=== PATIENT | female | born 1980 | race Caucasian/White ===

== ENCOUNTER 2017-12-22 19:39 | Emergency (ER) | payer SELFPAY ==
[~2017-12-22 19:39] MED LIST: ALPR-429 PO; ATEN-65 PO; CLO10 MT; HYDR-4225 PO; IBUP800T37 PO; MELO-205 PO; METH-543 PO; NAPR500T31 PO; SERT-1 PO
[2017-12-22 19:44] VITALS: BP 146/102
--- NOTE | 2017-12-22 19:45 | ER Report ---
History and Physical Time Seen By MD: 19:41 HPI/ROS CHIEF COMPLAINT: sinus infection HISTORY OF PRESENT ILLNESS: This is a 37 year old female. She has severe pain in the left side of her nose and into the left cheek. Congestion and post-nasal drainage. 3 days of symptoms. Has history of really bad sinus infections. Has been using decongestants and nasal spray. She has used Flonase nasal spray in the past for spring allergic symptoms that are mild. She is having cough, but nonproductive. No chest pain. Chronic constipation, no diarrhea. Allergies: Coded Allergies: No Known Drug Allergies (Unverified , 12/22/17) Home Meds Active Scripts Amoxicillin (AMOXICILLIN) 500 Mg Capsule, 1 CAP PO Q8H, #21 CAPSULE 0 Refills Prov:ROSEMARY PONCE MD 12/22/17 Reported Medications Ibuprofen (IBUPROFEN) 800 Mg Tablet, 1 TAB PO Q8H, TAB 04/15/17 Discontinued Scripts Hydroxyzine Hcl (HYDROXYZINE HCL) 25 Mg Tablet, 25 MG PO Q6H for Anxiety, #30 TAB 0 Refills Prov:QAMAR MOULTON MD 04/15/17 Sertraline Hcl (ZOLOFT) 50 Mg Tablet, 1 TAB PO QDAY, #30 TAB 0 Refills Take 0.5 tab daily x 7 days. Then take 1 tab daily. Prov:ZAIRE PETERSON DNP, INSURANCE INSTRUCTOR-BC 11/09/16 Reviewed Nurses Notes: Yes Smoking Status: Current: Every Day Smoker Constitutional Vital Sign - Last 24 Hours 12/22/17 19:44 Temp 99.1 Pulse 87 Resp 16 B/P (MAP) 146/102 Pulse Ox 99 Physical Exam General Appearance: The patient is alert, has no immediate need for airway protection and no current signs of toxicity. Eyes: Pupils equal and round no injection. ENT: Normal oral mucosa. Moist mucous membranes. Thin post nasal drainage. Posterior oropharynx with a couple of small ulcers and erythema. Nasal mucosa red, erythematous and has a small ulcer on mucosa of the side of the left nasal passage. Red and bulging left TM, right TM with effusion only. Neck: Neck is supple and non tender. Has left periauricular lymphadenopathy. Respiratory: Chest is non tender, lungs are clear to auscultation. Cardiac: regular rate and rhythm Gastrointestinal: Abdomen is soft and non tender, no masses, bowel sounds normal. Musculoskeletal: Extremities have full range of motion. Non tender. Skin: No rashes or lesions. DIFFERENTIAL DIAGNOSIS: After history and physical exam differential diagnosis was considered for what appears to be a viral sinusitis and an acute otitis media on the left Medical Decision Making ED Course/Re-evaluation ED Course Amoxicillin for the otitis media, continue nasal saline, Sudafed, Tylenol and ibuprofen. Follow-up if no improvement in the next 2 weeks. Decision to Disposition Date: December 22, 2017 Decision to Disposition Time: 20:08 Depart Departure Latest Vital Signs Vital Signs Date Time Temp Pulse Resp B/P (MAP) Pulse Ox O2 Delivery O2 Flow Rate FiO2 12/22/17 19:44 99.1 87 16 146/102 99 Impression: Primary Impression: Otitis media Additional Impression: Sinus infection Condition: Improved Disposition: HOME OR SELF-CARE Referrals: TORI RITTER APRN INSURANCE INSTRUCTOR-C (PCP) New Scripts Amoxicillin (AMOXICILLIN) 500 Mg Capsule 1 CAP PO Q8H, #21 CAPSULE 0 Refills Prov: ROSEMARY PONCE MD 12/22/17 Patient Instructions: Otitis Media (ED), Sinusitis (ED) Additional Instructions: Keep using your sinus nasal spray and decongestants. We are prescribing the antibiotic Amoxicillin 500mg three times a day for 7 days for the ear infection. The sinus infection appears to be likely viral in origin. With your history of spring seasonal allergies, you could also restart your Flonase as well. Follow-up with your regular doctor for re-evaluation if you are not improving in the next 2 weeks. Problem Qualifiers Primary Impression: Otitis media Otitis media type: suppurative Chronicity: acute Laterality: left Recurrence: not specified as recurrent Spontaneous tympanic membrane rupture: without spontaneous rupture Qualified Codes: H66.002 - Acute suppurative otitis media without spontaneous rupture of ear drum, left ear Additional Impression: Sinus infection Sinusitis location: maxillary Chronicity: acute Recurrence: non-recurrent Qualified Codes: J01.00 - Acute maxillary sinusitis, unspecified ROSEMARY PONCE MD December 22, 2017 19:45
[2017-12-22] MEDS ORDERED: AMOX-362 PO (20:10)
== END 2017-12-22 20:33 | disposition home or self-care (01) ==
LOC: ER 20:07
DX: H66.002 Acute suppurative otitis media without spontaneous rupture of ear drum, left ear (principal); J01.00 Acute maxillary sinusitis, unspecified
CPT/HCPCS: 99282

== ENCOUNTER 2017-12-25 10:08 | Emergency (ER) | payer SELFPAY ==
[~2017-12-25 10:08] MED LIST changes: +AMOX-362 PO
[2017-12-25 10:11] VITALS: BP 140/105
[2017-12-25] MEDS ORDERED: AMOX-556 PO (10:28)
--- NOTE | 2017-12-25 10:29 | ER Report ---
History and Physical Time Seen By MD: 10:18 Hx. of Stated Complaint: STATES THAT HER ABT HAS HELPED HER LEFT INFECTION, BUT STATES THAT SINUS INFECTION IS GETTING WORSE HPI/ROS CHIEF COMPLAINT: Sinusitis HISTORY OF PRESENT ILLNESS: Patient is a 37-year-old female who was seen in the emergency department on December 22 and diagnosed with a right otitis media. Patient had been complaining of some mild sinus pressure at time. Examination revealed a right otitis media and the patient was placed on amoxicillin. The patient states that her ear pain is improving she also reports that some of the swollen lymph nodes are also improving however she states that she is now having pressure behind her eyes, postnasal discharge and worsening of her sinus pressure. She denies any fevers or chills she denies any neck stiffness. She has been on amoxicillin for approximately 3 days. She has had sinusitis in the past which caused her to get quite ill. She is concerned that this may be happening again so she presents to the emergency department for reevaluation. REVIEW OF SYSTEMS: Respiratory: No cough, no dyspnea. Cardiovascular: No chest pain, no palpitations. Gastrointestinal: No vomiting, no abdominal pain. Musculoskeletal: No back pain. Allergies: Coded Allergies: No Known Drug Allergies (Unverified , 12/25/17) Home Meds Active Scripts Amoxicillin/Potassium Clav (AUGMENTIN 500-125 TABLET) 1 Each Tablet, 1 TAB PO Q8H for 10 Days, #30 TAB 0 Refills Prov:QAMAR MOULTON MD 12/25/17 Amoxicillin (AMOXICILLIN) 500 Mg Capsule, 1 CAP PO Q8H, #21 CAPSULE 0 Refills Prov:ROSEMARY PONCE MD 12/22/17 Reported Medications Ibuprofen (IBUPROFEN) 800 Mg Tablet, 1 TAB PO Q8H, TAB 04/15/17 Discontinued Scripts Hydroxyzine Hcl (HYDROXYZINE HCL) 25 Mg Tablet, 25 MG PO Q6H for Anxiety, #30 TAB 0 Refills Prov:QAMAR MOULTON MD 04/15/17 Sertraline Hcl (ZOLOFT) 50 Mg Tablet, 1 TAB PO QDAY, #30 TAB 0 Refills Take 0.5 tab daily x 7 days. Then take 1 tab daily. Prov:ZAIRE PETERSON DNP, TURNAROUND ENGINEER-BC 11/09/16 Past Medical/Surgical History Noncontributory towards this chief complaint Smoking Status: Current: Every Day Smoker Constitutional Vital Sign - Last 24 Hours 12/25/17 10:11 Temp 99.2 Pulse 77 Resp 18 B/P (MAP) 140/105 Pulse Ox 96 O2 Delivery Room Air Physical Exam General Appearance: Alert, no distress. Eyes: Pupils equal and round no pallor or injection. ENT, Mouth: Ears: Tympanic membranes are normal. Nose: No bleeding. Boggy nasal turbinates Mouth: Mucous membranes are moist. Throat: No erythema or exudates there is no tonsillar hypertrophy and uvula is midline. Musculoskeletal: Neck is supple non tender, no adenopathy. Skin: Warm and dry, no rashes. Medical Decision Making ED Course/Re-evaluation ED Course Patient with progression of symptoms to sinus pressure and nasal discharge. Patient currently taking amoxicillin we'll have her stop the amoxicillin and start Augmentin today. Decision to Disposition Date: December 25, 2017 Decision to Disposition Time: 10:45 Depart Departure Latest Vital Signs Vital Signs Date Time Temp Pulse Resp B/P (MAP) Pulse Ox O2 Delivery O2 Flow Rate FiO2 12/25/17 10:11 99.2 77 18 140/105 96 Room Air Impression: Primary Impression: Sinusitis Condition: Improved Disposition: HOME OR SELF-CARE Referrals: TORI RITTER APRN TURNAROUND ENGINEER-C (PCP) 2 Days if symptoms persist New Scripts Amoxicillin/Potassium Clav (AUGMENTIN 500-125 TABLET) 1 Each Tablet 1 TAB PO Q8H for 10 Days, #30 TAB 0 Refills Prov: QAMAR MOULTON MD 12/25/17 Patient Instructions: Sinusitis (GEN) Additional Instructions: Discontinue the use of the amoxicillin. Continue taking Sudafed as directed. Start Augmentin your 1st dose will be this afternoon followed by a dose at nighttime. You will continue taking the Augmentin 3 times a day for 10 days. Problem Qualifiers Primary Impression: Sinusitis Sinusitis location: unspecified location Chronicity: acute Recurrence: non -recurrent Qualified Codes: J01.90 - Acute sinusitis, unspecified QAMAR MOULTON MD December 25, 2017 10:29
[2017-12-25] MEDS ORDERED: AMOX/CLAV 875 MG TAB PO ONE (10:30)
[2017-12-26] MEDS ORDERED: FLUC150T40 PO (04:58)
[2017-12-26] MEDS ORDERED: METH4TAB66 PO (04:58)
== END 2017-12-25 10:39 | disposition home or self-care (01) ==
LOC: ER 10:12
DX: J01.90 Acute sinusitis, unspecified (principal)
CPT/HCPCS: 99283

== ENCOUNTER 2017-12-26 03:48 | Emergency (ER) | payer SELFPAY ==
[~2017-12-26 03:48] MED LIST changes: +AMOX-556 PO
--- NOTE | 2017-12-26 04:00 | ER Report ---
History and Physical Time Seen By MD: 03:59 Hx. of Stated Complaint: Pt reporting facial swelling for a week. On augmentin from previous ed visit. Pt states swelling is worse. HPI/ROS CHIEF COMPLAINT: sinusitis with facial swelling HISTORY OF PRESENT ILLNESS: This is a 37 year old female. She has been taking Augmentin for sinus infection. Tonight was worried because of right cheek and periorbital swelling. She was very nervous because of a past sinus infection that almost killed her. The swelling has gone down since coming in to the ER. No pain at this time. Still with lots of nasal discharge and mucous. No fevers. Using saline rinses and sprays. Allergies: Coded Allergies: No Known Drug Allergies (Unverified , 12/25/17) Home Meds Active Scripts Fluconazole (DIFLUCAN) 150 Mg Tablet, 150 MG PO QDAY, #1 TAB 1 Refill Prov:ROSEMARY PONCE MD 12/26/17 Methylprednisolone (METHYLPREDNISOLONE) 4 Mg Tab.ds.pk, 4 MG PO DIRECTED for 6 Days, #1 PACK 0 Refills Prov:ROSEMARY PONCE MD 12/26/17 Amoxicillin/Potassium Clav (AUGMENTIN 500-125 TABLET) 1 Each Tablet, 1 TAB PO Q8H for 10 Days, #30 TAB 0 Refills Prov:QAMAR MOULTON MD 12/25/17 Reported Medications Ibuprofen (IBUPROFEN) 800 Mg Tablet, 1 TAB PO Q8H, TAB 04/15/17 Discontinued Scripts Amoxicillin (AMOXICILLIN) 500 Mg Capsule, 1 CAP PO Q8H, #21 CAPSULE 0 Refills Prov:ROSEMARY PONCE MD 12/22/17 Hydroxyzine Hcl (HYDROXYZINE HCL) 25 Mg Tablet, 25 MG PO Q6H for Anxiety, #30 TAB 0 Refills Prov:QAMAR MOULTON MD 04/15/17 Sertraline Hcl (ZOLOFT) 50 Mg Tablet, 1 TAB PO QDAY, #30 TAB 0 Refills Take 0.5 tab daily x 7 days. Then take 1 tab daily. Prov:ZAIRE PETERSON DNP, RADIO MECHANIC HELPER-BC 11/09/16 Reviewed Nurses Notes: Yes Smoking Status: Current: Every Day Smoker Constitutional Vital Sign - Last 24 Hours 12/26/17 12/26/17 12/26/17 12/26/17 03:50 03:52 03:52 04:00 Temp 98.5 Pulse 80 Resp 16 B/P (MAP) 125/66 (85) 106/72 (83) 106/72 130/59 (82) Pulse Ox 97 O2 Delivery Room Air 12/26/17 12/26/17 12/26/17 04:03 04:33 05:13 Pulse 75 71 64 B/P (MAP) 102/74 (83) Pulse Ox 96 94 96 O2 Delivery Room Air Physical Exam General Appearance: Alert, no distress. Eyes: Pupils equal and round no pallor or injection. ENT: Mucous membranes are moist. Oral mucosa is normal in appearance. Posterior oropharynx has minimal erythema with some post nasal drainage, but no exudates. Nasal mucosa is mildly erythematous. Tympanic membranes and canals are normal. Musculoskeletal: Neck is supple non tender There is no adenopathy. Skin: Warm and dry. Minimal swelling over the medial cheek and eye. No warmth or rash. DIFFERENTIAL DIAGNOSIS: After history and physical exam differential diagnosis was considered for swelling of the face with sinusitis. Medical Decision Making EKG/Imaging Imaging FACIAL BONES W CONTRAST HISTORY: Sinus pressure and facial swelling. COMPARISON: None. Brain MR 06/10/2016. TECHNIQUE: Axial images were obtained from the superior aspect of the orbits through the inferior aspect of mandible. Coronal and sagittal reformatted images were obtained from the axial source data. One of the following dose optimization techniques was utilized in the performance of this exam: Automated exposure control; adjustment of the mA and/ or kV according to the patient's size; or use of an iterative reconstruction technique. Specific details can be referenced in the facility's radiology CT exam operational policy. CONTRAST: 75 mm IV Isovue-370. FINDINGS: Osseous structures: No acute abnormality. Soft Tissues: Normal. Orbits: Normal. Visualized brain: Normal. Paranasal sinuses and mastoids: There is mild opacification of the right sphenoid sinus. Ostiomeatal units are patent. There is minimal rightward nasal septal bowing. IMPRESSION: 1. Mild right sphenoid sinus disease. These findings were discussed by phone with ROSEMARY PONCE on 12/26/2017 4:50 AM. Report Dictated By: Ebony Schwarz at 12/26/2017 4:43 AM ED Course/Re-evaluation Clinical Indication for ER IV: IV Access ED Course CT scan with contrast shows only mild sinus disease. Solu-Medrol 125mg given. Will take a Medrol Dospack. Also given a prescription for diflucan. Decision to Disposition Date: December 26, 2017 Decision to Disposition Time: 04:57 Depart Departure Latest Vital Signs Vital Signs Date Time Temp Pulse Resp B/P (MAP) Pulse Ox O2 Delivery O2 Flow Rate FiO2 12/26/17 05:13 64 102/74 (83) 96 Room Air 12/26/17 03:52 98.5 16 Impression: Primary Impression: Sinusitis Condition: Improved Disposition: HOME OR SELF-CARE Referrals: TORI RITTER APRN RADIO MECHANIC HELPER-C (PCP) New Scripts Fluconazole (DIFLUCAN) 150 Mg Tablet 150 MG PO QDAY, #1 TAB 1 Refill Prov: ROSEMARY PONCE MD 12/26/17 Methylprednisolone (METHYLPREDNISOLONE) 4 Mg Tab.ds.pk 4 MG PO DIRECTED for 6 Days, #1 PACK 0 Refills Prov: ROSEMARY PONCE MD 12/26/17 Patient Instructions: Sinusitis (ED) Additional Instructions: Take the steroid pack called a Medrol Dospack. This is a steroid pack that tapers over 6 days. You can keep taking Ibuprofen or Tylenol as needed for pain. If you get a yeast infection from the antibiotics, you can take Diflucan 150mg. One tablet. Can repeat this in 5 days if needed. Finish the Augmentin prescription. Problem Qualifiers Primary Impression: Sinusitis Sinusitis location: sphenoidal Chronicity: acute Recurrence: not specified as recurrent Qualified Codes: J01.30 - Acute sphenoidal sinusitis, unspecified ROSEMARY PONCE MD December 26, 2017 04:00
[2017-12-26] MEDS ORDERED: IOPAMIDOL 76% 75 ML INFUS BTL 75 ML ONE (04:15)
--- NOTE | 2017-12-26 04:57 | RADIOLOGY IMAGING REPORT ---
FACILITY: [facility] PATIENT NAME: Orly Michael : 1980 MR: [id number] V: [id number] EXAM DATE: [id number] ORDERING PHYSICIAN: ROSEMARY PONCE TECHNOLOGIST: Location: [facility] [place] Patient: Orly Michael : 1980 Visit/Account:[id number] Date of Sevice: 12/26/2017 FACIAL BONES W CONTRAST HISTORY: Sinus pressure and facial swelling. COMPARISON: None. Brain MR 06/10/2016. TECHNIQUE: Axial images were obtained from the superior aspect of the orbits through the inferior asp ect of mandible. Coronal and sagittal reformatted images were obtained from the axial source data. One of the following dose optimization techniques was utilized in the performance of this exam: Autom ated exposure control; adjustment of the mA and/or kV according to the patient's size; or use of an i terative reconstruction technique. Specific details can be referenced in the facility's radiology CT exam operational policy. CONTRAST: 75 mm IV Isovue-370. FINDINGS: Osseous structures: No acute abnormality. Soft Tissues: Normal. Orbits: Normal. Visualized brain: Normal. Paranasal sinuses and mastoids: There is mild opacification of the right sphenoid sinus. Ostiomeatal units are patent. There is minimal rightward nasal septal bowing. IMPRESSION: 1. Mild right sphenoid sinus disease. These findings were discussed by phone with ROSEMARY PONCE on 12/26/2017 4:50 AM. Report Dictated By: Ebony Schwarz at 12/26/2017 4:43 AM Report E-Signed By: Ebony Schwarz at 12/26/2017 4:52 AM WSN:[id number]
[2017-12-26] MEDS ORDERED: METH4TAB66 PO (04:58)
[2017-12-26] MEDS ORDERED: FLUC150T40 PO (04:58)
[2017-12-26] MEDS ORDERED: methylPREDNIS SUCC 125 MG/2ML IVP ONE (05:00)
[2017-12-26 05:13] VITALS: BP 102/74
== END 2017-12-26 05:16 | disposition home or self-care (01) ==
LOC: ER 04:15
DX: J01.90 Acute sinusitis, unspecified (principal)
CPT/HCPCS: 70487; 96374; 99284; J2930; Q9967